=== PATIENT | female | born 1940 | race Caucasian/White ===

== ENCOUNTER → 2018-01-03 05:56 | Outpatient (CLI) | payer MEDICARE, OTHER, SELFPAY ==
--- NOTE | 2018-01-03 06:04 | ECHOD_ITS ---
Reason For Study: CAD.ASHD Procedure This was a 2D Doppler, Color Flow transthoracic echocardiogram. Exam performed in department. Left Ventricle Normal LV size. Left ventricular systolic function is normal. The estimated ejection fraction is 60 %. Stage 1 diastolic dysfunction. No regional wall motion abnormalities noted. Right Ventricle Normal RV size. Normal systolic function. Atria Normal left atrium. Normal right atrium. Bubble contrast study negative for right to left interatrial shunt. Mitral Valve Normal mitral valve. Mild (1+) eccentric mitral valve insufficiency. Tricuspid Valve Normal tricuspid valve. Mild (1+) tricuspid valve insufficiency. Pulmonary artery systolic pressure is 26 mmHg. Aortic Valve Trisinus/trileaflet aortic valve. Mild focal aortic valve thickening. Pulmonic Valve Normal pulmonic valve. Great Vessels Normal aortic root. The pulmonary artery is normal size. Normal inferior vena cava. Pericardium/Pleural No pericardial effusion. Medication Performed a rapid injection of agitated mix of 9 cc saline and 1cc air to assess for atrial septal defect. MMode/2D Measurements & Calculations LVIDd: 5.4 cm IVSd: 0.80 cm Ao root diam: 3.2 cm LVIDs: 4.1 cm LVPWd: 0.97 cm RVDd: 3.1 cm FS: 23.5 % LAV(MOD-bp): 46.8 ml LA A4 area: 16.2 cm2 LA dimension(2D): 3.6 cm LAV(MOD-bp) Indexed: 26.7 ml/m2 LAV(MOD-sp2): 50.5 ml LAV(MOD-sp4): 43.6 ml RA A4 area: 13.7 cm2 Doppler Measurements & Calculations MV E max omar: 73.2 cm/sec Lat Peak E' Omar: 7.1 cm/sec Med Peak E' Omar: 6.5 cm/sec MV A max omar: 91.5 cm/sec E/E' lat: 10.2 E/E' med: 11.2 MV E/A: 0.80 Ao V2 max: 112.2 cm/sec LV V1 max: 94.6 cm/sec PA V2 max: 71.8 cm/sec Ao max P.0 mmHg LV V1 max P.6 mmHg PI dec slope: 88.4 cm/sec2 TR max omar: 237.2 cm/sec TR max P.7 mmHg Interpretation Summary Normal LV size. Left ventricular systolic function is normal. The estimated ejection fraction is 60 %. Stage 1 diastolic dysfunction. Mild (1+) tricuspid valve insufficiency. Pulmonary artery systolic pressure is 26 mmHg. Ordering Physician: Luis Miguel Mederos Referring Physician: JAMES Cobb M.D. Performed By: Linda Mack RDCS, RVT
--- NOTE | 2018-01-03 10:33 | STRESSREP ---
Stress Test Report Exercise myocardial perfusion stress test. Preoperative cardiac clearance. Stress protocol: Resting EKG demonstrates normal sinus rhythm with a rate of 61 bpm normal intervals and noted resting blood pressure 158/78 mmHg. The patient exercised according to regular Jon protocol for total duration of 7 minutes completing 1 minute into stage III of the Jon protocol. The maximum heart rate attained was 131 bpm which was 92% of maximum predicted heart rate the maximum workload was 8.5 metabolic equivalents. At rest there were no ST or T wave changes noted suggest ischemia at peak exercise upsloping ST changes were noted less than 1 mm not making the criteria for ischemia. Resting blood pressure 158/78 peak blood pressure 170/70 mmHg. Myocardial perfusion protocol. 11.7 mCi of technetium 99m sestamibi was injected. The patient exercised according to regular Jon protocol for 7 minutes at peak exercise 33.4 mCi of technetium 99m sestamibi was injected stress images were obtained stress and rest images were reconstructed and compared in the short axis vertical long and horizontal long axis. Gated images were also obtained. Perfusion SPECT analysis: Review of the stress images demonstrate normal uptake of tracer noted in all areas of the myocardium. The resting images similarly demonstrate normal uptake of tracer noted in all areas of the myocardium. No evidence of ischemia or previous infarct is noted. Conclusion: Normal exercise myocardial perfusion stress test at a moderate workload. Preserved ejection fraction. Good functional aerobic capacity.
== END ==
PROVIDERS: Family Provider Family Medicine; PCP Family Medicine; Referring Provider Internal Medicine Cardiovascular Disease; Visit Provider Internal Medicine Cardiovascular Disease
DX: Z01.810 Encounter for preprocedural cardiovascular examination (principal); I27.21 Secondary pulmonary arterial hypertension; I25.10 Atherosclerotic heart disease of native coronary artery without angina pectoris
CPT/HCPCS: 78452; 93017; 93306; A9500; A4216

== ENCOUNTER 2018-01-07 08:46 | Day surgery (SDC) | payer MEDICARE, OTHER, SELFPAY ==
[2017-12-30 09:53] LABS: Hematocrit 47.5 % (37-47); Hemoglobin 15.6 g/dl (12.0-15.0); Mean Corp Hgb Conc 32.8 g/gl (32-36); Mean Corpuscular Hgb 32.2 pg (27.0-32.0); Mean Corpuscular Volume 98.1 fL (81-99); Mean Platelet Vol. 10.6 fl (6.2-12.0); Platelet Count 208 K/mm3 (150-450); RBC Distribution Width CV 12.8 % (11.6-14.6); RBC Distribution Width SD 45.2 fl (35.1-43.9); Red Blood Count 4.84 M/mm3 (4.2-5.4)
[2017-12-30 09:55] LABS: Scan Indicated on CBC? Y/N NO
[2017-12-30 10:17] LABS: Anion Gap 3 (5-15); BUN 17 mg/dL (7-18); BUN/Creat Ratio 17.6 RATIO (10-20); Calcium,Total 9.3 mg/dL (8.5-10.1); Chloride 103 mmol/L (98-107); Creatinine, Serum 0.97 mg/dL (0.55-1.02); EST Glomerular Filtration Rate 59 mL/min (>60); Est Glom Filt Rate - Afr Amer 72 mL/min (>60); Glucose 111 mg/dL (74-106); Sodium Level 138 mmol/L (136-145)
[2018-01-07] VITALS (7 sets, daily range): BP systolic 115–137; BP diastolic 60–75; PULSE 64–69; RESP 16; TEMP 35.9–36.6; O2SAT 93–94; BMI 26.4
[2018-01-07] MEDS: Ciprofloxacin 0.3% 2.5ml Bottle 1 DRP (11:32)
--- NOTE | 2018-01-07 11:33 | PCM.OP.BLANK ---
Operative Report Date of Procedure: 01/07/18 Operative report on Lucila Judd Preoperative diagnosis serous otitis media Postoperative diagnosis same Anesthesia General Procedure the patient was placed supine on the operating room table and after satisfactory general anesthesia been obtained sterile drapes were applied and the patient draped in the usual sterile manner. The left ear was examined with the operating microscope. Number colored tympanic membrane was identified. An inferior incision was made with a [place] knife and clear fluid aspirated from the middle ear cleft. A parasol tube was placed in position in the rent in the tympanic membrane The tube was irrigated with Floxin solution. The procedure was considered terminated and the patient returned to the recovery room in satisfactory condition. Tushar Sawyer MD
== END 2018-01-07 12:16 | disposition home or self-care (01) ==
LOC: SDC 08:47 → AC 08:48
PROVIDERS: Family Provider Family Medicine; PCP Family Medicine; Referring Provider Otolaryngology Otolaryngology/Facial Plastic Surgery; Visit Provider Otolaryngology Otolaryngology/Facial Plastic Surgery
PROC: (CPT 69436; principal; 2018-01-07 10:30)
DX: H65.22 Chronic serous otitis media, left ear (principal); H90.12 Conductive hearing loss, unilateral, left ear, with unrestricted hearing on the contralateral side; H90.3 Sensorineural hearing loss, bilateral; I10 Essential (primary) hypertension; Z79.82 Long term (current) use of aspirin; Z79.899 Other long term (current) drug therapy; Z85.828 Personal history of other malignant neoplasm of skin
CPT/HCPCS: 69436; 36415; 80048; 85027; J7120

== ENCOUNTER → 2019-03-31 08:09 | Outpatient (CLI) | payer MEDICARE, OTHER, SELFPAY ==
--- NOTE | 2019-03-31 08:09 | CT_ITS ---
STUDY: CT BRAIN WITH AND WITHOUT CONTRAST REASON FOR EXAM: Female, 78 years old. DIPLOPIA AND PINS AND NEEDLE FEELING IN HEAD AND DOUBLE VISION RADIATION DOSAGE (If Supplied By Facility): CTDIvol = ( 44.99 ) mGy, DLP = ( 1580.97 ) mGycm TECHNIQUE: Transaxial CT imaging of the brain was performed pre and post contrast administration. The examination was performed with intravenous administration of IV 50mL Isovue-370. Individualized dose optimization techniques were used for this CT. COMPARISON: None. FINDINGS: Normal soft tissue structures. Normal calvarium. There is mild cerebral atrophy with widening of the extra-axial spaces and ventricular dilatation. There are areas of decreased attenuation within the white matter tracts of the supratentorial brain, consistent with microvascular disease changes. Normal basal ganglia and thalami. Normal brainstem. Normal cerebellum. There is no intracranial hemorrhage. There are no findings of an acute ischemic infarction. Normal visualized paranasal sinuses. CT/Brain/Head W/WO Contrast IMPRESSION: Chronic involutional changes of the brain. Electronically Signed: Jin Rosales, at 10:31 EST , Service support ,
[2019-03-31 08:20] LABS: CREATININE FINGERSTICK 0.9 mg/dL (0.55-1.02); EGFR FINGERSTICK > 60.0000 mL/min (>60)
== END ==
PROVIDERS: PCP Family Medicine; Referring Provider Surgery; Visit Provider Surgery
DX: H53.2 Diplopia (principal); R29.90 Unspecified symptoms and signs involving the nervous system
CPT/HCPCS: 70470; Q9967